=== PATIENT | male | born 1975 | race Two or more races ===

== ENCOUNTER 2019-07-22 15:30 | Inpatient (IN) | payer OTHER ==
[2019-07-22 16:49] VITALS: BMI 25.0
--- NOTE | 2019-07-22 18:36 | HP ---
COWS - Scale Resting Pulse: 0= CT 80 or Below Sweatin=Flushed/Facial Moisture Restless Observation: 0= Sits Still Pupil Size: 0= Normal to Room Light Bone or Joint Aches: 4=Acute Joint/Muscle Pain Runny Nose/ Eye Tearin= Runny Nose/Eyes GI Upset > 30mins: 2= Nausea/Diarrhea (diarrhea x 2) Tremor Observation: 2= Slight Tremor Visible Yawning Observation: 0= None Anxiety or Irritability: 4=Extreme Anxiety Goose Flesh Skin: 3=Piloerection COWS Score: 19 CIWA Score - Admission Criteria [facility]ASAS Guidelines: Admission for Medically Managed Detox: Requires at least one of the followin. CIWA greater than 12 2. Seizures within the past 24 hours 3. Delirium tremens within the past 24 hours 4. Hallucinations within the past 24 hours 5. Acute intervention needed for co occurring medical disorder 6. Acute intervention needed for co occurring psychiatric disorder 7. Severe withdrawal that cannot be handled at a lower level of care (continued vomiting, continued diarrhea, abnormal vital signs) requiring intravenous medication and/or fluids 8. Admission ROS [facility] Chief Complaint: Heroin withdrawal symptoms Allergies/Adverse Reactions: Allergies Allergy/AdvReac Type Severity Reaction Status Date / Time Pork/Porcine Containing Allergy Unknown Verified 07/22/19 16:42 Products [Pork/Porcine Product Derivatives] History of Present Illness: 44 years old male with a long history of heroin dependence is seeking admission to detox. Patient reports that his last detox was at [place], [place] and reports insignificant period of sobriety. He has history of Asthma, anemia and depression. He denies suicide attempt and suicidal ideation at this time Exam Limitations: No Limitations - Ebola screening Have you traveled outside of the country in the last 21 days: No (N) Have you had contact with anyone from an Ebola affected area: No Do you have a fever: No - Review of Systems Constitutional: Loss of Appetite, Malaise, Night Sweats, Changes in sleep EENT: reports: Nose Congestion Respiratory: reports: No Symptoms reported Cardiac: reports: No Symptoms Reported GI: reports: Diarrhea (x 2), Nausea, Poor Appetite, Poor Fluid Intake, Abdominal cramping : reports: No Symptoms Reported Musculoskeletal: reports: Back Pain, Muscle Pain, Muscle Weakness Integumentary: reports: Dryness, Flushing, Other (dry mucous membrane) Neuro: reports: Tremors Endocrine: reports: No Symptoms Reported Hematology: reports: No Symptoms Reported Psychiatric: reports: Mood/Affect Appropiate, Orientated x3, Depressed Other Systems: Reviewed and Negative Patient History - Patient Medical History Hx Anemia: Yes (Not on medication) Hx Asthma: Yes (Pt is on MDI for asthma.) Hx Chronic Obstructive Pulmonary Disease (COPD): No Hx Cancer: No Hx Cardiac Disorders: No Hx Congestive Heart Failure: No Hx Hypertension: No Hx Hypercholesterolemia: No Hx Pacemaker: No HX Cerebrovascular Accident: No Hx Seizures: No Hx Dementia: No Hx Diabetes: No Hx Gastrointestinal Disorders: No Hx Liver Disease: No Hx Genitourinary Disorders: No Hx Sexually Transmitted Disorders: No Hx Renal Disease (ESRD): No Hx Thyroid Disease: No Hx Human Immunodeficiency Virus (HIV): No (Negative 2019) Hx Hepatitis C: No Hx Depression: Yes (Not on medication) Hx Suicide Attempt: No Hx Bipolar Disorder: No Hx Schizophrenia: No - Patient Surgical History Past Surgical History: No Hx Neurologic Surgery: No Hx Cataract Extraction: No Hx Cardiac Surgery: No Hx Lung Surgery: No Hx Abdominal Surgery: No Hx Appendectomy: No Hx Cholecystectomy: No Hx Genitourinary Surgery: No Hx Orthopedic Surgery: No Hx Hysterectomy: No Anesthesia Reaction: No - PPD History Previous Implant?: Yes Documented Results: Negative w/o proof Date: 07/14/12 PPD to be Administered?: Yes - Reproductive History Patient is a Female of Child Bearing Age (11 -55 yrs old): No (male) - Smoking Cessation Smoking history: Current every day smoker Have you smoked in the past 12 months: Yes Aproximately how many cigarettes per day: 20 Cigars Per Day: 0 Hx Chewing Tobacco Use: No Initiated information on smoking cessation: Yes 'Breaking Loose' booklet given: 07/22/19 - Substance & Tx. History Hx Alcohol Use: No Hx Substance Use: Yes Substance Use Type: Cocaine, Heroin Hx Substance Use Treatment: Yes ([place], [place]) - Substances abused Heroin Substance route: Injection Frequency: Daily Amount used: 10 bags Age of first use: 20 Date of last use: 07/22/19 Cocaine Substance route: Injection Frequency: Daily Amount used: 20 dollars Age of first use: 20 Date of last use: 08/30/19 Family Disease History - Family Disease History Family History: Denies Admission Physical Exam [facility] - Vital Signs Vital Signs: Vital Signs - 24 hr 07/22/19 16:42 Temperature 97.7 F Pulse Rate 54 L Respiratory 18 Rate Blood Pressure 114/80 - Physical General Appearance: Yes: Within Normal Limits HEENTM: Yes: Within Normal Limits, Normal Voice Respiratory: Yes: Lungs Clear, Normal Breath Sounds, No Respiratory Distress Neck: Yes: Supple Breast: Yes: Breast Exam Deferred Cardiology: Yes: Regular Rhythm, Regular Rate Abdominal: Yes: Normal Bowel Sounds Genitourinary: Yes: Within Normal Limits Back: Yes: Normal Inspection Musculoskeletal: Yes: Within Normal Limits Extremities: Yes: Normal Inspection Neurological: Yes: Within Normal Limits, Alert, Normal Mood/Affect Integumentary: Yes: Warm Lymphatic: Yes: Within Normal Limits - Diagnostic (1) Opioid dependence with withdrawal Current Visit: Yes Status: Acute (2) Cocaine dependence with withdrawal Current Visit: Yes Status: Acute (3) Cannabis dependence with withdrawal Current Visit: Yes Status: Acute (4) Anemia Current Visit: Yes Status: Acute Qualifiers: Anemia type: unspecified type Qualified Code(s): D64.9 - Anemia, unspecified (5) Depression Current Visit: Yes Status: Chronic Qualifiers: Depression Type: unspecified Qualified Code(s): F32.9 - Major depressive disorder, single episode, unspecified (6) Asthma Current Visit: Yes Status: Chronic (7) Nicotine dependence Current Visit: Yes Status: Chronic Cleared for Admission [facility] - Detox or Rehab [facility] Level of Care: Medically Managed Detox Regimen/Protocol: Methadone Claeared for Rehab Admission: No (seeking admission to detox ) Breathalyzer - Breathalyzer Breathalyzer: 0 Urine Drug Screen - Test Device Lot number: [id number] Expiration date: 04/22/21 - Control Is test valid?: Yes - Results Drug screen NEGATIVE: No Urine drug screen results: THC-Marijuana, DAYANARA-Cocaine, FEN-Fentanyl, MOP-Opiates , OXY-Oxycodone Inpatient Rehab Admission - Rehab Decision to Admit Inpatient rehab admission?: No
[2019-07-22] MEDS ORDERED: MAGNESIUM CITRATE 300 ML BOTTLE PO PRN (18:52)
[2019-07-22] MEDS ORDERED: NICOTINE POLACRILEX 2 MG GUM BUC PRN (18:52)
[2019-07-22] MEDS ORDERED: ACETAMINOPHEN 325 MG TABLET (FP) PO PRN ×2 (18:52)
[2019-07-22] MEDS ORDERED: IBUPROFEN 400 MG TABLET (FP) PO PRN (18:52)
[2019-07-22] MEDS ORDERED: cloNIDine HCL 0.1 MG TABLET PO PRN (18:52)
[2019-07-22] MEDS ORDERED: hydrOXYzine PAMOATE 25 MG CAPSULE (FP) PO PRN (18:52)
[2019-07-22] MEDS ORDERED: MENTHOL/PHENOL 1 EACH UD MM PRN (18:52)
[2019-07-22] MEDS ORDERED: BISMUTH SUBSALICYLATE 524 MG/30 ML UD PO PRN (18:52)
[2019-07-22] MEDS ORDERED: MAGNESIUM HYDROX 2400MG/30ML ORAL SUSPENSION 30 ML CUP PO PRN (18:52)
[2019-07-22] MEDS ORDERED: METHOCARBAMOL 500 MG TABLET PO PRN (18:52)
[2019-07-22] MEDS ORDERED: MELATONIN 5 MG TABLETS PO PRN (18:52)
[2019-07-22] MEDS ORDERED: METHADONE HCL 10 MG TABLET (FOR DETOX USE ONLY) PO ONE (18:52)
[2019-07-22] MEDS ORDERED: MAG HYDROX/AL HYDROX/SIMETH 30 ML UNIT-DOSE CUP PO PRN (18:52)
[2019-07-22] MEDS ORDERED: ALBUTEROL SO4 8 GM HFA INHALER IH PRN (18:54)
[2019-07-22] MEDS: THIAMINE HCL 100 MG TABLET (FP) PO SCH (22:28)
[2019-07-23] MEDS ORDERED: METHADONE HCL 10 MG TABLET (FOR DETOX USE ONLY) ONE (09:23)
[2019-07-23] MEDS ORDERED: METHADONE HCL 5 MG TABLET (FOR DETOX USE ONLY) ONE (09:24)
[2019-07-23 09:27] LABS: ALBUMIN 2.8 g/dl (3.4-5.0); BILIRUBIN,TOTAL 0.2 mg/dL (0.2-1); BLOOD UREA NITROGEN 10.1 mg/dL (7-18); CALCIUM 8.4 mg/dL (8.5-10.1); CREATININE 0.8 mg/dL (0.55-1.3); POTASSIUM 4.2 mmol/L (3.5-5.1); TOT PROT 5.5 g/dl (6.4-8.2)
[2019-07-23 09:39] LABS: HEMATOCRIT 40.3 % (35.4-49); HEMOGLOBIN 13.3 GM/dL (11.7-16.9); MCH 28.4 pg (25.7-33.7); MCHC 33.1 g/dl (32.0-35.9); MEAN CELL VOLUME 85.8 fl (80-96); MEAN PLT VOLUME 10.3 fl (7.5-11.1); PLATELET COUNT 201 K/MM3 (134-434); RBC 4.69 M/mm3 (4.00-5.60); RDW 14.4 % (11.9-15.9); WHITE BLOOD COUNT 6.4 K/mm3 (4.0-10.0)
[2019-07-23] MEDS ORDERED: METHADONE (DETOX) 20 MG, METHADONE (DETOX) 5 MG PO ONE (10:00)
--- NOTE | 2019-07-23 10:26 | PN ---
S COWS - Scale Resting Pulse: 0= TN 80 or Below Sweatin= Beads of Sweat on Face Restless Observation: 1= Difficult to Sit Still Pupil Size: 0= Normal to Room Light Bone or Joint Aches: 2= Severe Diffuse Aches Runny Nose/ Eye Tearin= None GI Upset > 30mins: 0= None Tremor Observation of Outstretched Hands: 2= Slight Tremor Visible Yawning Observation: 1= 1-2x During Session Anxiety or Irritability: 2=Irritable/Anxious Goose Flesh Skin: 0=Smooth Skin COWS Score: 11 S Progress Note (SOAP) Subjective: c/o muscle aches, sweats, and anxiety. Objective: 07/23/19 10:25 Vital Signs 07/23/19 07/23/19 07/23/19 03:30 06:45 09:46 Temperature 97.2 F L 96.8 F L Pulse Rate 54 L 55 L Respiratory 18 17 18 Rate Blood Pressure 109/67 116/76 Lab Results Sodium 141 mmol/L (136-145) 07/23/19 07:30 Potassium 4.2 mmol/L (3.5-5.1) 07/23/19 07:30 Chloride 109 mmol/L (98-107) H 07/23/19 07:30 Carbon Dioxide 29 mmol/L (21-32) 07/23/19 07:30 Anion Gap 4 MMOL/L (8-16) L 07/23/19 07:30 BUN 10.1 mg/dL (7-18) 07/23/19 07:30 Creatinine 0.8 mg/dL (0.55-1.3) 07/23/19 07:30 Random Glucose 94 mg/dL (74-106) 07/23/19 07:30 Calcium 8.4 mg/dL (8.5-10.1) L 07/23/19 07:30 Labs noted. Assessment: 07/23/19 10:25 AOX3, in no acute respiratory distress. Full ROM, ambulating in the unit. Withdrawal symptoms. Plan: continue detox.
[2019-07-23] MEDS: PRENATAL VITAMINS W/ FOLIC ACID TABLET (FP) PO SCH (11:19)
[2019-07-23] MEDS: NICOTINE 21 MG/24 HOURS TOPICAL PATCH TD SCH (11:19)
[2019-07-23] MEDS: THIAMINE HCL 100 MG TABLET (FP) PO SCH (22:20)
--- NOTE | 2019-07-24 09:39 | EKG ---
Test Reason : Blood Pressure : / mmHG Vent. Rate : 054 BPM Atrial Rate : 054 BPM P-R Int : 140 ms QRS Dur : 104 ms QT Int : 424 ms P-R-T Axes : 070 -19 019 degrees QTc Int : 402 ms SINUS BRADYCARDIA INCOMPLETE RIGHT BUNDLE BRANCH BLOCK BORDERLINE ECG NO PREVIOUS ECGS AVAILABLE Confirmed by ROB SAM, JACIEL ([id number]) on 07/24/2019 9:39:20 AM Referred By: DAYANARA KIRBY Confirmed By:JACIEL RIVAS MD
[2019-07-24] MEDS ORDERED: METHADONE HCL 10 MG TABLET (FOR DETOX USE ONLY) PO ONE (10:00)
[2019-07-24] MEDS: NICOTINE 21 MG/24 HOURS TOPICAL PATCH TD SCH (11:04)
[2019-07-24] MEDS: PRENATAL VITAMINS W/ FOLIC ACID TABLET (FP) PO SCH (11:04)
[2019-07-24 13:40] VITALS: BP 139/86; PULSE 16; TEMP 98.1
--- NOTE | 2019-07-24 14:44 | DS ---
[facility] Detox Discharge Summary Admission Date: 07/22/19 Discharge Date: 07/24/19 - History Present History: Cannabis Dependence, Cocaine Dependence, Opioid Dependence Additional Comments: Patient demanded to leave AMA despite encouragement from staff to complete detox. Patient instructed to call [phone] [phone] if feeling sick or withdrawal sxs and to see his PCP within 3 days. Patient left in stable condition. Pertinent Past History: Asthma Anemia Nicotine dependence - Physical Exam Results Vital Signs: Vital Signs Temperature 98.1 F 07/24/19 13:39 Pulse Rate 16 L 07/24/19 13:39 Respiratory Rate 58 H 07/24/19 13:39 Blood Pressure 139/86 07/24/19 13:39 O2 Sat by Pulse Oximetry (%) Elevated b/p most likely r/t withdrawal (denies htn, was on clonidine prn) Pertinent Admission Physical Exam Findings: Withdrawal sxs Laboratory Tests 07/23/19 07/23/19 07/23/19 07:30 07:30 07:30 WBC 6.4 RBC 4.69 Hgb 13.3 Hct 40.3 MCV 85.8 MCH 28.4 MCHC 33.1 RDW 14.4 Plt Count 201 MPV 10.3 Sodium 141 Potassium 4.2 Chloride 109 H Carbon Dioxide 29 Anion Gap 4 L BUN 10.1 Creatinine 0.8 Est GFR (CKD-EPI)AfAm 127.70 Est GFR (CKD-EPI)NonAf 110.18 Random Glucose 94 Calcium 8.4 L Total Bilirubin 0.2 AST 11 L ALT 16 Alkaline Phosphatase 81 Total Protein 5.5 L Albumin 2.8 L RPR Titer Nonreactive Labs reviewed - Medication Discharge Medications: Ambulatory Orders Albuterol Sulfate Inhaler - [Ventolin Hfa *Inhaler*] 1 - 2 inh IH Q4H PRN - Diagnosis (1) Anemia Current Visit: Yes Status: Acute Qualifiers: Anemia type: unspecified type Qualified Code(s): D64.9 - Anemia, unspecified (2) Cannabis dependence with withdrawal Current Visit: Yes Status: Chronic (3) Cocaine dependence with withdrawal Current Visit: Yes Status: Chronic (4) Opioid dependence with withdrawal Current Visit: Yes Status: Acute (5) Asthma Current Visit: Yes Status: Chronic (6) Nicotine dependence Current Visit: Yes Status: Chronic (7) Elevated blood-pressure reading, without diagnosis of hypertension Current Visit: Yes Status: Acute - AMA Did Patient Leave Against Medical Advice: Yes (Instructed to call 911 [facility] if feeling sick or withdrawal sxs)
[2019-07-25] MEDS ORDERED: METHADONE (DETOX) 10 MG, METHADONE (DETOX) 5 MG PO ONE (10:00)
[2019-07-26] MEDS ORDERED: METHADONE HCL 10 MG TABLET (FOR DETOX USE ONLY) PO ONE (10:00)
[2019-07-27] MEDS ORDERED: METHADONE HCL 5 MG TABLET (FOR DETOX USE ONLY) PO ONE (06:00)
== END 2019-07-24 12:51 | disposition left against medical advice (07) | DRG 770 ==
LOC: YASAS 15:30 → Y6N 19:16
PROVIDERS: ADMIT Surgery; ATTEND Surgery
PROC: HZ2ZZZZ Detoxification Services for Substance Abuse Treatment (ICD-10-PCS; principal; 2019-07-22)
DX: F11.23 Opioid dependence with withdrawal (principal); F14.23 Cocaine dependence with withdrawal; F12.23 Cannabis dependence with withdrawal; F17.210 Nicotine dependence, cigarettes, uncomplicated; F32.9 Major depressive disorder, single episode, unspecified; D64.9 Anemia, unspecified; J45.909 Unspecified asthma, uncomplicated
CPT/HCPCS: 36415; 80053; 85027; 86480; 86593; 93005; 93010